=== PATIENT | female | born 1960 | race Caucasian/White ===

== ENCOUNTER 2018-06-20 13:30 | Day surgery (SDC) | payer OTHER ==
[~2018-06-20] VITALS: Ht 157.5 cm; Wt 61.7 kg
--- NOTE | ~2018-06-20 | O ---
[facility] [place] [address] OPERATIVE REPORT Name: MICHAEL BOOTH Room #: 150-1 [facility] M.R.#: [id number] Admission: 06/20/18 ������������������ Attend Phys: Eligio Wooten MD Discharge: ������������������ Date of : 60 Report #: [id number] THIS REPORT FOR: //name// CC: Greyson Wooten DATE OF SERVICE: 06/20/2018 PREOPERATIVE DIAGNOSES: 1. Right hallux valgus. 2. Right second hammer toe deformity. 3. Right fifth toe bunionette deformity. POSTOPERATIVE DIAGNOSES: 1. Right hallux valgus. 2. Right second hammer toe deformity. 3. Right fifth toe bunionette deformity. PROCEDURES: 1. Right foot first metatarsal osteotomy and modified Malik procedure. 2. Right foot second toe proximal interphalangeal joint arthrodesis. 3. Right foot second metatarsophalangeal joint dorsal capsulotomy and tenotomy. 4. Right foot fifth metatarsal Chevron-type osteotomy. SURGEON: Eligio Wooten M.D. PRIMARY SUBSTANCE ABUSE COUNSELOR: Madiha Zarco. ANESTHESIA: General. ESTIMATED BLOOD LOSS: Minimal. DRAINS: No drains. TOURNIQUET TIME: 90 minutes. DESCRIPTION OF PROCEDURE: The patient was brought to the Operating Room where she was placed under general anesthesia. Once under adequate general anesthesia, her right lower extremity was prepped and draped in a sterile manner. The extremity was elevated, exsanguinated. Tourniquet was placed at 300 mmHg. Dorsal incision in the first webspace was made to dissect down through the soft tissue to the intermetatarsal ligament, which was released off of the lateral sesamoid and with a tenotomy scissor. The plantar capsular complex was released from the base of the proximal phalanx as well with the Schoolcraft blade. The joint was then fenestrated for reduction of the hallux valgus deformity. Subsequent to this, a medial incision was made overlying the [facility] [address] [place] [address] OPERATIVE REPORT Name: MICHAEL BOOTH Room #: [address] [place] [address] M.R.#: [id number] Admission: 06/20/18 ������������������ Attend Phys: Eligio Wooten MD Discharge: ������������������ Date of : 60 Report #: [id number] metatarsal to dissect down through the soft tissue to the medial joint capsule, which was incised exposing the medial eminence. The medial eminence was then resected utilizing a sagittal saw. Utilizing fluoroscopy for guidance, a guidewire was placed proximally to localize the osteotomy site and an opening wedge osteotomy was then achieved with the sagittal saw and completed with osteotomes. This was then fixed into place with a 5 mm opening wedge plate from the Synthes foot tray. Excellent fixation was achieved in this manner. A dorsal incision was made over the fifth metatarsal neck area. Dissection was carried down to the joint capsule, which was incised exposing the joint capsule, exposing the fifth metatarsal head. A sagittal saw was used to resect the lateral eminence and then a Chevron-type osteotomy was performed with a sagittal saw. The capital fragment was then translated medially and fixed into place with a single 3.0 cannulated screw. The lateral overhang was then resected with a sagittal saw as well. Attention was then taken to the second toe and a dorsal incision over the second proximal interphalangeal joint was made and was dissected down through the soft tissue to the extensor mechanism, which was incised exposing the proximal interphalangeal joint. A sagittal saw was then utilized to resect the proximal phalangeal head and the base of the middle phalanx was prepared with a rongeur as well. Fixation was then achieved at the proximal interphalangeal joint with a size 19 Smart Toe implant after it was drilled and broached for. Utilizing the previous intermetatarsal incision, a dorsal capsulotomy and tenotomy was then performed with tenotomy scissors and a red devil blade releasing as well the medial collateral ligament to allow the toe to sit straighter. The toe was then pinned as well with a 6.2 K-wire in a neutral alignment at the metatarsophalangeal joint. Once complete, the wounds were irrigated copiously. The joint capsules were repaired with 2-0 Ethibond suture. The wounds were irrigated once again copiously and demineralized bone matrix allograft was placed into the osteotomy site at the great toe first metatarsal and the wounds were then closed with 3-0 Vicryl in the subcutaneous tissues and 3-0 nylon for the skin. The wounds were dressed with Xeroform, 4 x 4s, and sterile soft compressive dressing was placed. Tourniquet was let down approximately 90 minutes. Toes were pink and warm with good capillary refill. There were no complications from the procedure. The patient tolerated the procedure well and was taken to recovery room without incident. ��������������������������������������������� ���������������������������������������� By: ��������������������������������������������� [id number] Eligio Wooten MD /ting
[~2018-06-20 13:30] MED LIST: CONCERTA54 M1 PO; MAGOX 400400 MG PO; NORVASC5 M1 PO; PEPCID20 MG PO; PROBIOTIC1 EAC1 PO; VITAMIN D-32000 UNIT PO
[2018-06-20 14:04] VITALS: BP 116/79
[2018-06-20] MEDS ORDERED: PERCOCET 7.5-31 EACH PO (16:09)
--- NOTE | 2018-06-20 16:44 | EKG ---
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 Final: MARILUZ : 1960 Requested By: Eligio Wooten Order Number: [id number] MD: Kevan Hargrove Measurements Intervals [place] Rate: 64 P: 25 VA: 138 QRS: 16 QRSD: 102 T: 24 QT: 424 QTc: 438 Interpretive Statements Sinus rhythm Nonspecific ST segment abnormalities No previous ECG available for comparison Electronically Signed On 06-20-2018 16:44:48 CDT by Kevan Hargrove [email or web address] ��������������������������������������������� <ELECTRONICALLY SIGNED> ���������������������������������������� By: Kevan Hargrove MD ��������������������������������������������� 06/20/18 1644 [id number] Kevan Hargrove MD /EPI
[2018-06-20 17:10] VITALS: BP 116/79
== END 2018-06-20 19:00 | disposition home or self-care (01) ==
LOC: OR 13:30 → TBA 14:56 → OR 15:02
DX: M20.11 Hallux valgus (acquired), right foot (principal); M20.41 Other hammer toe(s) (acquired), right foot; M21.621 Bunionette of right foot; F90.9 Attention-deficit hyperactivity disorder, unspecified type; I10 Essential (primary) hypertension; K21.9 Gastro-esophageal reflux disease without esophagitis; Z98.890 Other specified postprocedural states
CPT/HCPCS: 50010; 50101; 50386; 50951; 51008; 51291; 55430; 56524; 56526; 56527; 57091; 57166; 57180; 62110; 62900; 70005

== ENCOUNTER 2018-09-17 05:51 | Day surgery (SDC) | payer OTHER ==
[~2018-09-17] VITALS: Ht 157.5 cm; Wt 70.3 kg
--- NOTE | ~2018-09-17 | O ---
[facility] [place] [address] OPERATIVE REPORT Name: MICHAEL BOOTH Room #: 150-3 [facility] M.R.#: [id number] Admission: 09/17/18 ������������������ Attend Phys: Eligio Wooten MD Discharge: ������������������ Date of : 60 Report #: [id number] THIS REPORT FOR: //name// CC: Greyson Wooten DATE OF SERVICE: 09/17/2018 PREOPERATIVE DIAGNOSIS: Right foot hallux varus with dorsiflexion malunion of the first metatarsal. POSTOPERATIVE DIAGNOSIS: Right foot hallux varus with dorsiflexion malunion of the first metatarsal. PROCEDURE: Right foot first metatarsal revision osteotomy with hallux varus repair. SURGEON: Eligio Wooten MD PATTERN GRADER SUPERVISOR: None. ANESTHESIA: General. ESTIMATED BLOOD LOSS: Minimal. DRAINS: None. TOURNIQUET TIME: 75 minutes. DESCRIPTION OF PROCEDURE: The patient was brought to the operating room where she was placed under general anesthesia. Once under adequate general anesthesia, her right lower extremity was prepped and draped in a sterile manner and the extremity was elevated, exsanguinated, tourniquet placed to 300 mmHg. The patient's previous dorsal incision was then utilized and dissection carried down to the first metatarsal and the retained hardware there. Exposure of the plate was made and the 4 screws were then removed and the plate was removed from the first metatarsal. A sagittal saw was then used dorsally with a plantar greenstick-type maneuver to perform a plantar flexing osteotomy of the first metatarsal. This was then fixed into place with a 3 mm wedge plate from the Synthes set. Demineralized bone matrix allograft was then placed into this osteotomy site. Distally, there was a hallux varus deformity as well, which had been an issue; therefore, medially, a capsular release was then made both medially and plantarward to release the soft tissue contracture. This, however, was incomplete; therefore, a guidewire and drill for the Synthes small internal brace was then utilized and a Synthes internal brace with a button distally was then utilized for fixation of the hallux varus. Satisfactory alignment was [facility] [address] [place] [address] OPERATIVE REPORT Name: MICHAEL BOOTH Room #: 150-3 [facility]..#: [id number] Admission: 09/17/18 ������������������ Attend Phys: Eligio Wooten MD Discharge: ������������������ Date of : 60 Report #: [id number] achieved once complete. The wound was then irrigated copiously and closed with 3-0 Vicryl in subcutaneous tissues and jamila were used for the skin. The wounds were dressed with Xeroform, 4 x 4s, and sterile soft compressive dressing was placed. Tourniquet was let down at approximately 75 minutes. Toes were pink and warm with a good capillary refill. There were no complications from the procedure. The patient tolerated the procedure well and was taken to the recovery room without incident. ��������������������������������������������� ���������������������������������������� By: ��������������������������������������������� [id number] Eligio Wooten MD /ting
[~2018-09-17 05:51] MED LIST changes: +ACETAMINOPHEN-1 EAC1 PO; +PERCOCET 7.5-31 EACH PO; +ZANTAC 150MG T150 MG PO
[2018-09-17 08:30] VITALS: BP 123/89
[2018-09-17 11:38] VITALS: BP 123/89
== END 2018-09-17 13:30 | disposition home or self-care (01) ==
LOC: TBA 05:51 → OR 05:51
DX: S92.311P Displaced fracture of first metatarsal bone, right foot, subsequent encounter for fracture with malunion (principal); M20.31 Hallux varus (acquired), right foot; M21.271 Flexion deformity, right ankle and toes; K21.9 Gastro-esophageal reflux disease without esophagitis; Z98.890 Other specified postprocedural states; Z79.899 Other long term (current) drug therapy; Z88.2 Allergy status to sulfonamides; Z88.8 Allergy status to other drugs, medicaments and biological substances; X58.XXXD Exposure to other specified factors, subsequent encounter
CPT/HCPCS: 50010; 50101; 50386; 50951; 51008; 51412; 55430; 56524; 56526; 56527; 57091; 57180; 62110; 62900; 70005